=== PATIENT | female | born 1965 | race African-American/Black ===

== ENCOUNTER 2024-09-28 18:58 | Emergency (ER) | payer OTHER, MEDICAID ==
[~2024-09-28] VITALS: Ht 165.1 cm; Wt 70.0 kg
[2024-09-28 19:02] VITALS: TEMP 98.7; O2SAT 98
[2024-09-28 22:06] LABS: BASOPHILS % 0.9 % (0.0-2.0); EOSINOPHILS % 1.4 % (0.0-5.0); HEMOGLOBIN. 13.4 g/dL (12.0-16.0); LYMPHOCYTES % 31.7 % (20.0-50.0); MEAN CORPUSCULAR HEMOGLOBIN 31.4 pg (28.0-32.0); MEAN CORPUSCULAR HGB CONC 32.6 g/dL (31.0-37.0); MEAN CORPUSCULAR VOLUME 96.4 fL (81.0-99.0); MEAN PLATELET VOLUME 9.9 fl (7.4-10.4); MONOCYTES % 4.9 % (2.0-8.0); NEUTROPHILS % 61.1 % (40.0-76.0); PLATELET 179 x1000/uL (130-400); RED BLOOD CELL COUNT 4.25 mill/uL (4.2-5.4); RED CELL DISTRIBUTION WIDTH 13.4 % (11.6-14.6); WHITE BLOOD COUNT 4.3 x1000/uL (4.5-11.0)
[2024-09-28 22:14] LABS: CHLORIDE 106 mEq/L (98-107); POTASSIUM 3.9 mEq/L (3.5-5.1); SODIUM 140 mEq/L (136-145)
[2024-09-28 22:15] LABS: CARBON DIOXIDE 27 mEq/L (21-32)
[2024-09-28 22:16] LABS: CALCIUM 9.5 mg/dL (8.7-10.4)
[2024-09-28 22:20] LABS: CREATININE 1.1 mg/dL (0.6-1.0); GLUCOSE 90 mg/dL (70-105); UREA NITROGEN BLOOD 22 mg/dL (9-23)
[2024-09-28 22:21] LABS: D-DIMER 0.4 mg/L FEU (<0.50); INR 0.9; PARTIAL THROMBOPLASTIN TIME 32.3 sec (23.4-31.0); PROTHROMBIN TIME 10.4 sec (9.6-11.0)
[2024-09-28 22:30] VITALS: BP 111/75; PULSE 88; RESP 20; O2SAT 98
[2024-09-28 22:32] LABS: ETHANOL BLOOD < 10 mg/dL (<10); TROPONIN I HIGH SENSITIVITY 178 ng/L (3.0-34)
[2024-09-28] MEDS: ASPIRIN 325MG EC TABLET PO ONE (22:56)
[2024-09-28 23:58] LABS: TROPONIN I HIGH SENSITIVITY 181 ng/L (3.0-34)
== END 2024-09-29 01:46 | disposition admitted as inpatient to this hospital (09) ==
LOC: ER 18:58 → EDBEDREQTM 23:39 → EDBEDREQ 23:39 → CANBEDREQ 09-29 00:59 → ER 09-29 01:46
DX: R00.2 Palpitations (principal); I21.4 Non-ST elevation (NSTEMI) myocardial infarction; I48.91 Unspecified atrial fibrillation; Z88.0 Allergy status to penicillin
CPT/HCPCS: 36415; 71045; 80048; 80320; 83880; 84443; 84484; 85025; 85379; 93005; 99291; G0480